=== PATIENT | female | born 1950 | race African-American/Black ===

== ENCOUNTER 2017-01-23 11:40 | Emergency (ER) | payer OTHER, BC ==
[2017-01-23 11:53] VITALS: TEMP 97.9; BMI 40.3
--- NOTE | 2017-01-23 12:11 | PDOC ---
History of Present Illness - General Chief Complaint: Syncope/Near Syncope Stated Complaint: NEAR SYNCOPE Time Seen by Provider: 01/23/17 12:02 History Source: Patient Exam Limitations: No Limitations Past History - Travel Traveled outside of the country in the last 30 days: No Close contact w/someone who was outside of country & ill: No - Past Medical History Allergies/Adverse Reactions: Allergies Allergy/AdvReac Type Severity Reaction Status Date / Time No Known Allergies Allergy Verified 01/23/17 11:43 Other medical history: back problems - Psycho/Social/Smoking Cessation Hx Suicidal Ideation: No Smoking History: Never smoked Review of Systems - Review of Systems Able to Perform ROS?: Yes Is the patient limited Danish proficient: Yes *Physical Exam - Vital Signs Last Vital Signs Temp Pulse Resp BP Pulse Ox 97.9 F 85 18 161/102 97 01/23/17 11:43 01/23/17 11:43 01/23/17 11:43 01/23/17 11:43 01/23/17 11:43
--- NOTE | 2017-01-23 12:24 | PDOC ---
History of Present Illness - General Chief Complaint: Syncope/Near Syncope Stated Complaint: NEAR SYNCOPE History Source: Patient Exam Limitations: No Limitations - History of Present Illness Initial Comments: 01/23/17 12:39 66 yo F with PMHx of peripheral neuropathy and chronic back pain presents via EMS after syncopal episode earlier today. She state she was at [employer] today when she felt light headed and faint. She went to take a seat when she loss her balance and fell to floor. She states she did not lose complete consiousness. She was aware of her surrounding and could her people talking around her. She has no cardiac history or h/o arrythmia. Prior to fall she denies diaphoresis, chest pain , palpitations, aura or precipitating factors. She states that she had increased pain this morning and as a result she took all her medications for pain (Vicodin, Gabapentine, and Flexeril) which she very rarely does and did not eat or drink anything except glass of water prior to [employer]. Denies urinary symptoms. No prior syncopal events. Denies CP, MOROCHO, SOB, abd. pain, N/V. Presenting Symptoms: Near-Syncope Timing/Duration: reports: gone now Severity/Quality: reports: moderate Activities at Onset: reports: other (standing at [employer]) Prior Chest Pain/Cardiac Workup: reports: No prior chest pain Past History - Travel Traveled outside of the country in the last 30 days: No Close contact w/someone who was outside of country & ill: No - Past Medical History Allergies/Adverse Reactions: Allergies Allergy/AdvReac Type Severity Reaction Status Date / Time No Known Allergies Allergy Verified 01/23/17 11:43 Home Medications: Ambulatory Orders Cyclobenzaprine HCl [Flexeril 10 mg] 10 mg PO Q12H 01/23/17 Gabapentin Enacarbil [Horizant] 600 mg PO BID 01/23/17 Hydrocodone/Acetaminophen [Vicodin 5-300 mg Tablet] 1 each PO BID PRN 01/23/17 Nitrofurantoin Monohyd/M-Cryst [Macrobid -] 100 mg PO BID #14 capsule 01/23/17 Other medical history: Peripheral neuropathy and chronic back pain - Surgical History Orthopedic Surgery: Yes (right knee) - Psycho/Social/Smoking Cessation Hx Smoking History: Never smoked Have you smoked in the past 12 months: No Hx Alcohol Use: No Drug/Substance Use Hx: No Substance Use Type: None Lives with/in: spouse/SO Cardiac Specific PMH - Complaint Specific PMHX Angina: No Cardiac Arrhythmia: No Cardiac Stent: No GERD: No Myocardial Infarction: No Pacemaker: No Pulmonary Embolus: No Valvular Heart Disease: No Review of Systems - Review of Systems Able to Perform ROS?: Yes Is the patient limited Georgian proficient: No Constitutional: Yes: See HPI Psychiatric: Yes: Anxiety All Other Systems: Reviewed and Negative *Physical Exam - Vital Signs Last Vital Signs Temp Pulse Resp BP Pulse Ox 97.9 F 77 20 138/77 98 01/23/17 11:43 01/23/17 17:40 01/23/17 17:40 01/23/17 17:40 01/23/17 17:40 - Physical Exam General Appearance: Yes: Other (lethargic) HEENT: positive: EOMI, MELISSA Neck: positive: Supple. negative: Carotid bruit Respiratory/Chest: positive: Lungs Clear, Normal Breath Sounds. negative: Respiratory Distress, Accessory Muscle Use Cardiovascular: positive: Regular Rhythm, Regular Rate, S1, S2. negative: Edema , JVD, Murmur Vascular Pulses: Dorsalis-Pedis (R): 2+, Doralis-Pedis (L): 2+ Gastrointestinal/Abdominal: positive: Normal Bowel Sounds, Flat, Soft Musculoskeletal: positive: Normal Inspection, CVA Tenderness Extremity: positive: Normal Inspection, Normal Range of Motion, Other (right knee) Integumentary: positive: Normal Color, Dry, Warm Neurologic: positive: Fully Oriented ED Treatment Course - LABORATORY CBC & Chemistry Diagram: 01/23/17 12:43 01/23/17 12:56 - ADDITIONAL ORDERS Additional order review: Laboratory Results 01/23/17 01/23/17 01/23/17 17:46 12:56 12:43 Sodium 140 Potassium 4.0 Chloride 102 Carbon Dioxide 26 Anion Gap 12 BUN 12 Creatinine 0.7 Creat Clearance w eGFR > 60 Random Glucose 265 H Calcium 8.6 Total Bilirubin 0.4 AST 28 ALT 43 Alkaline Phosphatase 58 Creatine Kinase 93 Troponin I < 0.02 < 0.02 Total Protein 6.7 Albumin 3.4 Urine Color Yellow Urine Appearance Clear Urine pH 5.0 Ur Specific [place] 1.028 Urine Protein Negative Urine Glucose (UA) 2+ H Urine Ketones Negative Urine Blood Negative Urine Nitrite Negative Urine Bilirubin Negative Urine Urobilinogen Negative Ur Leukocyte Esterase Trace H Urine RBC 1 Urine WBC 8 Ur Epithelial Cells Rare Urine Mucus Few 01/23/17 12:43 RBC 4.26 MCV 86.1 MCHC 32.8 RDW 13.2 MPV 8.2 Neutrophils % 43.1 Lymphocytes % 37.7 Monocytes % 13.1 H Eosinophils % 4.9 H Basophils % 1.2 - RADIOLOGY Radiology Studies Ordered: Category Date Time Status CHEST X-RAY PORTABLE* [RAD] Stat Radiology 01/23/17 12:36 Completed Medical Decision Making - Medical Decision Making 01/23/17 12:58 66 yo F with PMHx of peripheral neuropathy and chronic pain presents with near syncopal episode. Will send labs to r/o anemia, hypoglycemia, cardiac events. EKG and chest xray r/o arrythmia and pna. UA for possible uti. 01/23/17 16:56 CXR- no acute pathology EKG- NSR to st or t wave abnormality UA- shows acute UTI ; will give abx for home Cardiac enzymes (-) CBC- no anemia and elevated blood glucose. *DC/Admit/Observation/Transfer Diagnosis at time of Disposition: Pre-syncope, Urinary tract infection - Discharge Dispostion Disposition: HOME Condition at time of disposition: Stable Admit: No - Prescriptions Prescriptions: Nitrofurantoin Monohyd/M-Cryst [Macrobid -] 100 mg PO BID #14 capsule - Referrals Referrals: Jm Aguilar [Primary Care Provider] - - Patient Instructions Printed Discharge Instructions: DI for Syncope in Adults (Fainting), DI for Urinary Tract Infection (UTI) Additional Instructions: Increase activity as tolerated. Caution when combining Vicodin and Flexeril in the future. If symptoms return or condition worsens return to ER. Resume home meds. Complete Nitofurantoin as directed. Regular diet and exercise. Follow up with PCP in one week.
[2017-01-23] MEDS ORDERED: SODIUM CHLORIDE 1,000 ML IV SCH (12:45)
[2017-01-23 13:22] LABS: BASOPHIL 1.2 % (0-2.0); EOSINOPHIL 4.9 % (0-4.5); MCH 28.2 pg (25.7-33.7); MCHC 32.8 g/dl (32.0-36.0); MEAN CELL VOLUME 86.1 fl (80-96); MEAN PLT VOLUME 8.2 fl (7.5-11.1); NEUTROPHILS 43.1 % (42.8-82.8); PLATELET COUNT 205 K/MM3 (134-434); RDW 13.2 % (11.6-15.6); WHITE BLOOD COUNT 4.9 K/mm3 (4.0-10.0)
[2017-01-23 13:24] LABS: URINE APPEARANCE CLEAR; URINE BILIRUBIN NEGATIVE (NEGATIVE); URINE BLOOD NEGATIVE (NEGATIVE); URINE COLOR YELLOW; URINE GLUCOSE (UA) 2+ (NEGATIVE); URINE KETONE NEGATIVE (NEGATIVE); URINE NITRITE NEGATIVE (NEGATIVE); URINE PROTEIN NEGATIVE (NEGATIVE); URINE UROBILINOGEN NEGATIVE E.U./dl (0.2-1.0)
[2017-01-23 13:26] LABS: URINE LEUK ESTERASE TRACE (NEGATIVE)
[2017-01-23 13:29] LABS: URINE MUCUS FEW; URINE RBC 1 /hpf (0-3); URINE WBC 8 /hpf (3-5)
[2017-01-23 13:52] LABS: ALBUMIN 3.4 g/dl (3.4-5.0); ANION GAP 12 (8-16); CALCIUM 8.6 mg/dL (8.5-10.1); CO2 26 mmol/L (21-32); COCKROFT - GAULT 137.6915; CREATININE 0.7 mg/dL (0.55-1.02); GLUCOSE,RANDOM 265 mg/dL (74-106); SGOT/AST 28 U/L (15-37); SGPT/ALT 43 U/L (12-78)
[2017-01-23 13:56] LABS: ALK PHOS 58 U/L (45-117); BILIRUBIN,TOTAL 0.4 mg/dL (0.2-1.0); TOT PROT 6.7 g/dl (6.4-8.2); TROPONIN I < 0.02 ng/ml (0.00-0.05)
--- NOTE | 2017-01-23 14:13 | PDOC ---
Attending Attestation - Resident Resident Name: Perez Sanchez - ED Attending Attestation I have performed the following: I have examined & evaluated the patient, The case was reviewed & discussed with the resident, I agree w/resident's findings & plan, Exceptions are as noted - HPI HPI: 01/23/17 14:11 Agree with the resident's HPI as documented in the electronic medical record. - Physicial Exam PE: 01/23/17 14:11 Agree with the resident's physical examination as documented in the electronic medical record. - Medical Decision Making 01/23/17 14:12 66-year-old female with history of chronic lower back pain presents to the emergency department after a near syncopal episode while in [employer]; the patient states that she took Flexeril and Vicodin for her lower back pain which she does not commonly take. There is no preceding symptoms other than feeling lightheaded. Differential diagnosis includes but is not limited to: ACS, cardiac arrhythmia, vasovagal, drug induced, dehydration, electrolyte abnormality, toxic/metabolic derangement. Plan: 1. EKG 2. Labs 2. Chest x-ray 4. IV fluids for hydration 5. Observe and reevaluate
--- NOTE | 2017-01-23 17:12 | EKG ---
Test Reason : Blood Pressure : / mmHG Vent. Rate : 074 BPM Atrial Rate : 074 BPM P-R Int : 170 ms QRS Dur : 086 ms QT Int : 398 ms P-R-T Axes : 022 -39 -14 degrees QTc Int : 441 ms NORMAL SINUS RHYTHM LEFT AXIS DEVIATION MINIMAL VOLTAGE CRITERIA FOR LVH, MAY BE NORMAL VARIANT INFERIOR INFARCT (CITED ON OR BEFORE 15-DEC-2006) CANNOT RULE OUT ANTERIOR INFARCT , AGE UNDETERMINED ABNORMAL ECG WHEN COMPARED WITH ECG OF 15-DEC-2006 07:28, NO SIGNIFICANT CHANGE WAS FOUND Confirmed by ZA PARKER MD ([id number]) on 01/23/2017 5:12:16 PM Referred By: Confirmed By:ZA PARKER MD
[2017-01-23] MEDS ORDERED: NITROFURANTOIN MACROCRYSTAL 50 MG CAPSULE (FP) PO SCH (18:30)
[2017-01-23] MEDS ORDERED: NITROFURANTOIN MACROCRYSTAL 50 MG CAPSULE (FP) ONE (18:47)
[2017-01-23 18:54] VITALS: BP 152/97; PULSE 85
== END 2017-01-23 18:54 | disposition home or self-care (01) ==
LOC: JER 11:40
PROC: 3E0337Z Introduction of Electrolytic and Water Balance Substance into Peripheral Vein, Percutaneous Approach (ICD-10-PCS; principal; 2017-01-23)
DX: N39.0 Urinary tract infection, site not specified (principal); R55 Syncope and collapse; G62.89 Other specified polyneuropathies; M54.5 Low back pain; G89.29 Other chronic pain; W18.39XA Other fall on same level, initial encounter; Y93.89 Activity, other specified; Y92.22 Religious institution as the place of occurrence of the external cause
CPT/HCPCS: 36415; 71010-TC; 80053; 81003; 81015; 82550; 84484; 85025; 93005; 93010; 96360; 96361; 99284-25

== ENCOUNTER 2019-02-27 23:06 | Emergency (ER) | payer OTHER, BC ==
[2019-02-27 23:15] VITALS: BMI 34.7
[2019-02-28] MEDS ORDERED: diazePAM 5 MG TABLET PO ONE
--- NOTE | 2019-02-28 00:03 | PDOC ---
History of Present Illness - General Chief Complaint: Back Pain Stated Complaint: LEG PAIN Time Seen by Provider: 02/27/19 23:43 History Source: Patient - History of Present Illness Initial Comments: 02/27/19 23:55 68 year old female c/o pain from right buttocks radiating down leg since 5.30 pm. denies trauma/ injury, heavy lifting. reports folding laundry. no incontinence of bowel or urine. no saddles anesthesia history of chronic back pain managed by pain management. , 02/28/19 00:03 Past History - Past Medical History Allergies/Adverse Reactions: Allergies Allergy/AdvReac Type Severity Reaction Status Date / Time No Known Allergies Allergy Verified 02/27/19 23:14 Home Medications: Ambulatory Orders Cyclobenzaprine HCl [Flexeril 10 mg] 10 mg PO Q12H 01/23/17 Gabapentin Enacarbil [Horizant] 600 mg PO BID 01/23/17 Hydrocodone/Acetaminophen [Vicodin 5-300 mg Tablet] 1 each PO BID PRN 01/23/17 Nitrofurantoin Monohyd/M-Cryst [Macrobid -] 100 mg PO BID #14 capsule 01/23/17 Cyclobenzaprine HCl [Flexeril -] 10 mg PO TID PRN #10 tablet 02/28/19 Ibuprofen 600 mg PO QID PRN #20 tablet 02/28/19 COPD: No CHF: No - Surgical History Orthopedic Surgery: Yes (right knee) - Suicide/Smoking/Psychosocial Hx Smoking History: Unknown if ever smoked Have you smoked in the past 12 months: No Information on smoking cessation initiated: No Hx Alcohol Use: No Drug/Substance Use Hx: No Substance Use Type: None Review of Systems - Review of Systems Able to Perform ROS?: Yes Is the patient limited Turkish proficient: No Musculoskeletal: Yes: Back Pain *Physical Exam - Vital Signs Last Vital Signs Temp Pulse Resp BP Pulse Ox 98.0 F 10 L 16 172/91 H 100 02/27/19 23:13 02/27/19 23:13 02/27/19 23:13 02/27/19 23:13 02/27/19 23:13 - Physical Exam General Appearance: Yes: Appropriately Dressed Musculoskeletal: positive: Normal Inspection, Other (right leg pain). negative : Vertebral Tenderness Integumentary: positive: Normal Color, Dry, Warm Neurologic: positive: Fully Oriented, Alert, Normal Mood/Affect Progress Note - Progress Note Progress Note: A: back pain with sciatica P: flexeril NSAIDS outpatient pain management follow up. *DC/Admit/Observation/Transfer Diagnosis at time of Disposition: Sciatica of right side - Discharge Dispostion Disposition: HOME - Prescriptions Prescriptions: Cyclobenzaprine HCl [Flexeril -] 10 mg PO TID PRN #10 tablet PRN Reason: Muscle Spasms Ibuprofen 600 mg PO QID PRN #20 tablet PRN Reason: Back Pain - Referrals Referrals: Michael Ramirez MD [Primary Care Provider] - - Patient Instructions Printed Discharge Instructions: DI for Back Pain With Sciatica Additional Instructions: you may take ibuprofen with food every 6 hours as needed for pain. take flexeril as prescribed. this medication can make you sleepy. do not drive after taking this medication. follow up with pain management tomorrow. - Post Discharge Activity Forms/Work/School Notes: Back to Work
[2019-02-28] MEDS ORDERED: IBUPROFEN 600 MG TABLET (FP) PO ONE ×2 (00:23)
[2019-02-28] MEDS ORDERED: diazePAM 5 MG TABLET ONE (00:23)
[2019-02-28 01:30] VITALS: BP 120/60; PULSE 77; TEMP 97.8
== END 2019-02-28 01:30 | disposition home or self-care (01) ==
LOC: JER 23:06
DX: M54.41 Lumbago with sciatica, right side (principal); G89.29 Other chronic pain
CPT/HCPCS: 99282-25